=== PATIENT | male | born 1960 | race Caucasian/White ===

== ENCOUNTER 2019-06-06 05:51 | Day surgery (SDC) | payer OTHER ==
[2019-06-05 11:37] LABS: BASOPHILS % (AUTO) 0.5 % (0-1); EOSINOPHILS # (AUTO) 0.3 X10'3 (0-0.9); EOSINOPHILS % (AUTO) 3.6 % (0-6); LYMPHOCYTES # (AUTO) 2.4 X10'3 (1.1-4.8); LYMPHOCYTES % (AUTO) 34.4 % (21-51); MEAN CORPUSCULAR HEMOGLOBIN 30.3 PG (27.0-31.0); MEAN CORPUSCULAR HGB CONC 33.8 g/dL (33.0-36.5); MEAN CORPUSCULAR VOLUME 89.7 FL (78-98); MONOCYTES # (AUTO) 0.6 X10'3 (0-0.9); NEUTROPHILS # (AUTO) 3.6 X10'3 (1.8-7.7); NEUTROPHILS % (AUTO) 52.5 % (42-75); PRE OP HEMOGLOBIN 13.5 g/dL (14.0-17.9); PRE OP PLATELET COUNT 159 X10'3 (140-440); RED BLOOD COUNT 4.46 X10'6 (4.70-6.10); RED CELL DISTRIBUTION WIDTH 13.4 % (11.5-14.5)
[2019-06-05 12:10] LABS: ALBUMIN 3.9 G/DL (3.4-5.0); ALBUMIN/GLOBULIN RATIO 1.1 (1.1-1.5); ALKALINE PHOSPHATASE 54 IU/L (46-116); BLOOD UREA NITROGEN 16 MG/DL (7-18); BUN/CREATININE RATIO 21.1 (5.4-32.0); CALCIUM 9.2 MG/DL (8.5-10.1); CHLORIDE 104 MMOL/L (99-107); CREATININE 0.76 MG/DL (0.60-1.10); PRE OP ALT 62 U/L (30-65); PRE OP ANION GAP 8 (8-16); PRE OP AST 26 U/L (10-37); PRE OP BILIRUB, TOTAL 0.5 MG/DL (0.0-1.0); PRE OP GLUCOSE 114 MG/DL (70-104); PRE OP POTASSIUM 4.6 MMOL/L (3.4-5.1); PRE OP SODIUM 141 MMOL/L (135-145); TOTAL CARBON DIOXIDE 28.6 MMOL/L (24-32); TOTAL PROTEIN 7.3 G/DL (6.4-8.2); eGFR > 90 ML/MIN
[~2019-06-06] VITALS: Ht 175.3 cm; Wt 126.0 kg
[2019-06-06] VITALS (13 sets, daily range): BP systolic 140–169; BP diastolic 80–93
[~2019-06-06 05:51] MED LIST: ASPI-1265 PO; CARV20CP PO; DOCUMENT DATE & TIME OF BETA-BLOCKER PO ONE; DOXY25TA58 PO; EZET10TA6 PO; LANS30CA37 PO; WATER PILL PO; cefazolin/dext.iso 2gm/50ml 50 ML IV ONE; famotidine 20mg tablet PO ONE; ringers solution, lacted 1,000 ML IV SCH
[2019-06-06] MEDS ORDERED: LIDOcaine 1% (10mg/ml) 2ml vial ONE (06:20)
[2019-06-06] MEDS ORDERED: LIDOcaine 1% 30ml preserv. free vial ONE (06:37)
[2019-06-06] MEDS ORDERED: BUPIVAcaine/PF 2.5 mg/ml (0.25%) 30ml vial ONE (06:37)
[2019-06-06] MEDS ORDERED: fentaNYL/PF 50MCG/1 ML 2ML syringe ONE (07:26)
[2019-06-06] MEDS ORDERED: propofol inj 20 ML IV ONE (07:26)
[2019-06-06] MEDS ORDERED: midazolam 2 mg/2 ml injection ONE (07:26)
[2019-06-06] MEDS ORDERED: ringers solution, lacted 1,000 ML IV SCH (07:32)
[2019-06-06] MEDS ORDERED: morphine 2 MG/ML inj. syringe IV PRN (07:35)
[2019-06-06] MEDS ORDERED: morphine 4 MG/ML inj SYRINge IV PRN (07:35)
[2019-06-06] MEDS ORDERED: proCHLORperazine 10 MG/2 ml inj IV PRN (07:35)
[2019-06-06] MEDS ORDERED: meperidine/PF 25mg/ml syringe IV PRN ×2 (07:35)
[2019-06-06] MEDS ORDERED: ondansetron/PF 4mg/2ml inj IV PRN (07:35)
[2019-06-06] MEDS ORDERED: dexamethasone sod phosphate 10mg/ml inj ONE (07:36)
[2019-06-06] MEDS ORDERED: ondansetron/PF 4mg/2ml inj ONE (07:36)
[2019-06-06] MEDS ORDERED: sevoflurane 250ml liquid IH ONE (07:36)
[2019-06-06] MEDS ORDERED: rocuronium 10mg/ml inj IV ONE (09:10)
[2019-06-06] MEDS ORDERED: glycopyrrolate 0.2mg/ml inj ONE (09:13)
[2019-06-06] MEDS ORDERED: neostigmine methylsulfate 1 MG/ML 10ml vial ONE (09:13)
--- NOTE | 2019-06-06 09:34 | NUR ---
PT RECIEVED VIA GURNEY WITH DR HURST ANESTHESIA. PT DROWSY BUT AWAKENS WITH NO C/O PAIN AT THIS TIME. 20 GAUGE PIV L HAND PATENT AND RUNNING LR AT 100 ML/HR. SKIN PINK AND WARM, SHARIFA NGUYỄN, LG BANDAID X3 CDI. Addendum: 06/06/19 at 0946 by Brigid Pool RN Amended: Links added.
[2019-06-06] MEDS ORDERED: HYDROcodone/acetaminophen 10/325mg tab PO PRN (09:35)
[2019-06-06] MEDS ORDERED: HYDROcodone/acetaminophen 5mg/325mg tablet PO PRN (09:35)
[2019-06-06] MEDS: meperidine/PF 25mg/ml syringe IV PRN ×2 (10:06→10:26)
--- NOTE | 2019-06-06 11:34 | NUR ---
PT A&O, SKIN PINK AND WARM, PAIN LEVEL AT 4, DISCHARGE CRITERIA MET, VSS, 20 GAUGE PIV L HAND DC/D CATHETER TIP INTACT, PT VOIDED 400ML CLEAR YELLOW URINE, TOLERATING FLUIDS WELL, D/C INSTRUCTIONS GIVEN TO PT AND SPOUSE, VERBALIZED UNDERSTANDING, TRANSFERRED VIA WHEELCHAIR TO SPOUSE AND HOME IN PRIVATE VEHICLE. Addendum: 06/06/19 at 1142 by Brigid Pool RN Amended: Links added.
== END 2019-06-06 11:34 | disposition home or self-care (01) ==
LOC: PAS 05:51
PROVIDERS: ATTEND Surgery
DX: K40.90 Unilateral inguinal hernia, without obstruction or gangrene, not specified as recurrent (principal); K42.0 Umbilical hernia with obstruction, without gangrene; I25.10 Atherosclerotic heart disease of native coronary artery without angina pectoris; E66.9 Obesity, unspecified; M17.11 Unilateral primary osteoarthritis, right knee; K21.9 Gastro-esophageal reflux disease without esophagitis; I25.2 Old myocardial infarction; J44.9 Chronic obstructive pulmonary disease, unspecified; Z68.38 Body mass index [BMI] 38.0-38.9, adult; Z79.899 Other long term (current) drug therapy; Z80.0 Family history of malignant neoplasm of digestive organs; Z82.49 Family history of ischemic heart disease and other diseases of the circulatory system; Z82.3 Family history of stroke; Z82.61 Family history of arthritis; Z95.5 Presence of coronary angioplasty implant and graft; Z88.6 Allergy status to analgesic agent
CPT/HCPCS: 36415; 49587; 49650; 80053; 82948; 85025; 93005; C1781; J1100; J2001; J2175; J2250; J2405; J2704; J2710; J3010; J3490; S2900; A4215; A4618; J7120

== ENCOUNTER 2020-01-24 12:43 | Emergency (ER) | payer OTHER ==
[~2020-01-24] VITALS: Ht 175.3 cm; Wt 113.6 kg
[~2020-01-24 12:43] MED LIST changes: -DOCUMENT DATE & TIME OF BETA-BLOCKER PO ONE; -cefazolin/dext.iso 2gm/50ml 50 ML IV ONE; -famotidine 20mg tablet PO ONE; -ringers solution, lacted 1,000 ML IV SCH
[2020-01-24 14:41] LABS: BASOPHILS % (AUTO) 0.4 % (0-1); EOSINOPHILS % (AUTO) 0.2 % (0-6); HEMATOCRIT 36.3 % (42.0-52.0); HEMOGLOBIN 12.2 g/dl (14.0-17.9); LYMPHOCYTES # (AUTO) 1.3 X10'3 (1.1-4.8); LYMPHOCYTES % (AUTO) 18.9 % (21-51); MEAN CORPUSCULAR HEMOGLOBIN 30.9 PG (27.0-31.0); MEAN CORPUSCULAR HGB CONC 33.8 g/dL (33.0-36.5); MEAN CORPUSCULAR VOLUME 91.4 FL (78-98); MEAN PLATELET VOLUME 7.9 FL (7.4-10.4); MONOCYTES # (AUTO) 0.7 X10'3 (0-0.9); MONOCYTES % (AUTO) 10.4 % (2-12); NEUTROPHILS # (AUTO) 4.7 X10'3 (1.8-7.7); NEUTROPHILS % (AUTO) 70.1 % (42-75); PLATELET COUNT 172 X10'3 (140-440); RED BLOOD COUNT 3.96 X10'6 (4.70-6.10); RED CELL DISTRIBUTION WIDTH 13.1 % (11.5-14.5); WHITE BLOOD COUNT 6.6 X10'3 (4.5-11.0)
[2020-01-24 14:54] LABS: ALANINE AMINOTRANSFERASE 56 U/L (12-78); ALBUMIN 3.2 G/DL (3.4-5.0); ALBUMIN/GLOBULIN RATIO 0.8 (1.1-1.5); ALKALINE PHOSPHATASE 45 IU/L (46-116); ANION GAP 6 (8-16); ASPARTATE AMINO TRANSFERASE 30 U/L (10-37); BILIRUBIN,TOTAL 0.6 MG/DL (0.1-1.0); BLOOD UREA NITROGEN 10 MG/DL (7-18); CALCIUM 9.1 MG/DL (8.5-10.1); CHLORIDE 101 MMOL/L (99-107); CREATININE 0.83 MG/DL (0.60-1.10); D-DIMER 0.43 MG/L FEU (0-0.50); GLUCOSE 193 MG/DL (70-104); PARTIAL THROMBOPLASTIN TIME 29 SECONDS (22-32); POTASSIUM 3.9 MMOL/L (3.5-5.1); SODIUM 139 MMOL/L (135-145); TOTAL CARBON DIOXIDE 31.6 MMOL/L (24-32); TOTAL PROTEIN 7.4 G/DL (6.4-8.2); eGFR > 90 ML/MIN
[2020-01-24] MEDS ORDERED: iohexol 350MG/ML 100ml bottle IV ONE (16:08)
--- NOTE | 2020-01-24 16:44 | NUR ---
Patient given water.
[2020-01-24] MEDS ORDERED: ALBU6.7H9 INH (17:45)
[2020-01-24] MEDS ORDERED: LEVO500T89 PO (17:45)
[2020-01-24] MEDS ORDERED: ONDA4TAB6 PO (17:45)
[2020-01-24] MEDS ORDERED: LORazepam 2 mg/ml vial IV ONE (17:45)
[2020-01-24] MEDS ORDERED: DEXA4TAB67 PO (17:45)
[2020-01-24 18:25] VITALS: BP 147/76
== END 2020-01-24 18:41 | disposition home or self-care (01) ==
LOC: ER 12:44
DX: U07.1 COVID-19 (principal); J44.9 Chronic obstructive pulmonary disease, unspecified; Z88.5 Allergy status to narcotic agent; Z79.82 Long term (current) use of aspirin; Z79.899 Other long term (current) drug therapy
CPT/HCPCS: 36415; 71045; 71275; 80053; 83880; 84484; 85025; 85379; 85610; 85730; 87502; 87503; 87635; 93005; 99285; C9803; Q9967

== ENCOUNTER 2023-05-19 16:54 | Emergency (ER) | payer BC, OTHER ==
[~2023-05-19] VITALS: Ht 175.3 cm; Wt 124.5 kg
[~2023-05-19 16:54] MED LIST changes: +ALBU6.7H14 INH; +DEXA4TAB67 PO; +ONDA4TAB6 PO
[2023-05-19 17:18] LABS: BASOPHILS % (AUTO) 0.5 % (0-1); EOSINOPHILS # (AUTO) 0.1 X10'3 (0-0.9); EOSINOPHILS % (AUTO) 1.6 % (0-6); HEMOGLOBIN 14.2 g/dl (14.0-17.9); LYMPHOCYTES # (AUTO) 1.6 X10'3 (1.1-4.8); LYMPHOCYTES % (AUTO) 23.6 % (21-51); MEAN CORPUSCULAR HEMOGLOBIN 31.4 PG (27.0-31.0); MEAN CORPUSCULAR HGB CONC 33.1 g/dL (33.0-36.5); MEAN CORPUSCULAR VOLUME 94.7 FL (78-98); MEAN PLATELET VOLUME 8.1 FL (7.4-10.4); MONOCYTES # (AUTO) 0.7 X10'3 (0-0.9); MONOCYTES % (AUTO) 9.7 % (2-12); NEUTROPHILS # (AUTO) 4.3 X10'3 (1.8-7.7); NEUTROPHILS % (AUTO) 64.6 % (42-75); PLATELET COUNT 155 X10'3 (140-440); RED BLOOD COUNT 4.54 X10'6 (4.70-6.10); RED CELL DISTRIBUTION WIDTH 13.9 % (11.5-14.5); WHITE BLOOD COUNT 6.7 X10'3 (4.5-11.0)
[2023-05-19 17:42] LABS: ALANINE AMINOTRANSFERASE 80 U/L (12-78); ALBUMIN/GLOBULIN RATIO 1.1 (1.1-1.5); ALKALINE PHOSPHATASE 58 IU/L (46-116); ANION GAP 10 (8-16); ASPARTATE AMINO TRANSFERASE 44 U/L (10-37); BILIRUBIN,TOTAL 1.5 MG/DL (0.1-1.0); BLOOD UREA NITROGEN 16 MG/DL (7-18); BUN/CREATININE RATIO 18.4 (10.0-20.0); CALCIUM 9.3 MG/DL (8.5-10.1); CHLORIDE 105 MMOL/L (99-107); CREATININE 0.87 MG/DL (0.60-1.10); GLUCOSE 182 MG/DL (70-104); POTASSIUM 4.1 MMOL/L (3.5-5.1); SODIUM 144 MMOL/L (135-145); TOTAL CARBON DIOXIDE 29.4 MMOL/L (24-32); TOTAL PROTEIN 7.6 G/DL (6.4-8.2); eCRCL 87 ML/MIN; eGFR 89 ML/MIN
[2023-05-19 17:48] LABS: PRO BRAIN NATRIURETIC PEPTIDE 663 PG/ML (0-125)
[2023-05-19 19:23] VITALS: TEMP 98
[2023-05-19] MEDS: cloNIDine 0.1 mg tablet PO ONE (19:23)
[2023-05-19 19:56] VITALS: BP 145/122; PULSE 86; RESP 13; O2SAT 98
== END 2023-05-19 19:58 | disposition home or self-care (01) ==
LOC: ER 16:55
DX: I16.0 Hypertensive urgency (principal); R07.89 Other chest pain; R42 Dizziness and giddiness; J44.9 Chronic obstructive pulmonary disease, unspecified; I25.10 Atherosclerotic heart disease of native coronary artery without angina pectoris; Z88.8 Allergy status to other drugs, medicaments and biological substances; Z88.6 Allergy status to analgesic agent; Z79.899 Other long term (current) drug therapy
CPT/HCPCS: 36415; 80053; 83880; 84484; 85025; 93005; 99284; 99291